=== PATIENT | male | born 1985 | race Hispanic/Latino ===

== ENCOUNTER 2017-10-15 17:12 | Emergency (ER) | payer OTHER, SELFPAY ==
--- NOTE | 2017-10-15 18:13 | RAD ---
RIGHT HAND: 10/15/17 Four views. HISTORY: Laceration to fifth finger. Injury with pain. Carpals appear unremarkable. The metacarpals and phalanges appear intact. IMPRESSION: No acute fracture identified. POS: [facility]
[2017-10-15] MEDS ORDERED: Adacel (T-DAP) 0.5 ML VIAL ONE (18:14)
[2017-10-15] MEDS ORDERED: HYDROcodone/Acetaminophen 10/325 mg Tablet ONE (18:24)
[2017-10-15] MEDS ORDERED: Lidocaine 1% (PF) 30 ML VIAL ONE (18:47)
[2017-10-15] MEDS ORDERED: Bacitracin Zinc 1 Packet ONE (19:50)
== END 2017-10-15 20:29 | disposition home or self-care (01) ==
LOC: ERS 17:12
DX: S61.216A Laceration without foreign body of right little finger without damage to nail, initial encounter (principal); Z23 Encounter for immunization; W26.8XXA Contact with other sharp object(s), not elsewhere classified, initial encounter; Y99.0 Civilian activity done for income or pay
CPT/HCPCS: 12001; 90471; 90715; J2001